=== PATIENT | male | born 1980 | race Caucasian/White ===

== ENCOUNTER 2018-06-16 11:38 | Emergency (ER) | payer OTHER, SELFPAY ==
[2018-06-16 11:39] VITALS: BP 157/97; PULSE 100; RESP 18; TEMP 36.6; O2SAT 99; BMI 19.6
--- NOTE | 2018-06-16 11:58 | CT_ITS ---
STUDY: CT ABDOMEN AND PELVIS WITH CONTRAST REASON FOR EXAM: Male, 37 years old. Left upper quadrant pain. The patient as a history of gastritis. RADIATION DOSAGE (If Supplied By Facility): CTDIvol = ( 6.59 ) mGy, DLP = ( 335.63 ) mGycm TECHNIQUE: Transaxial images were obtained from the dome of the diaphragm to the symphysis pubis with oral contrast. 100 ml of Isovue 300 contrast was administered. Sagittal and coronal images were reconstructed. Individualized dose optimization techniques were used for this CT. COMPARISON: Comparison is made with prior study dated April 23, 2011. FINDINGS: The visualized lung bases are unremarkable. The visualized portions of the heart are within normal limits. Normal liver. Normal gallbladder and extrahepatic biliary system. Normal spleen. Normal pancreas. Normal bilateral adrenal glands. Normal right kidney. Normal left kidney. There is evidence of a left retroaortic renal vein. Normal visualized stomach. Normal small intestine. There are scattered colonic diverticula consistent with diverticulosis. The patient is status post appendectomy. Normal abdominal aorta. Normal inferior vena cava. Normal retroperitoneum. Normal urinary bladder. Normal abdominal wall. Normal osseous structures. CT/Abdomen/Pelvis WITH Contrast IMPRESSION: Scattered sigmoid diverticula. Electronically Signed: Arcadio Middleton MD at 14:15 EST Tel [phone], Service support ,
[2018-06-16 12:19] LABS: Bacteria 0 SEEN /hpf (None Seen); Mucous, Urine 0 SEEN /hpf (<or=2+); White Blood Cells 0 SEEN /hpf (0-5)
[2018-06-16] MEDS: 0.9% Normal Saline 1,000 ML 1000 ML IV (12:19)
[2018-06-16 12:25] LABS: Color, Urine Yellow (Yellow); Glucose, Dipstick Normal (Normal); Ketone-Dipstick Negative (Negative); Leukocyte Esterase-Dipstick Negative /ul (Negative); Nitrite-Dipstick Negative (Negative); Occult Blood-Urine 10 /ul (Negative); Protein-Dipstick Negative (Negative); Urine Bilirubin Dipstick Negative (Negative); Urine Clarity Clear (Clear); Urine Urobilinogen Normal (Normal)
[2018-06-16 12:31] LABS: Red Blood Cells-Urine 0-5 SEEN /hpf (0-5); Squamous Epithelial Cells - UA 0-5 SEEN /hpf (0-5)
[2018-06-16 12:40] LABS: Absolute Lymphocyte Count 1.19 X10^3/ul (0.83-4.51); Basophil# 0.02 X10^3/uL; Basophil% 0.4 % (0-1); Eosinophil# 0.03 X10^3/uL; Eosinophils% 0.6 % (0-5); Hematocrit 45.1 % (40-54); Hemoglobin 15.9 g/dl (13.0-16.5); Lymphocyte # 1.19 X10^3/ul (4.0); Lymphocyte % 25.1 % (19-41); Mean Corp Hgb Conc 35.3 g/gl (32-36); Mean Corpuscular Hgb 30.5 pg (27.0-32.0); Mean Corpuscular Volume 86.6 fL (80-94); Monocyte# 0.46 X10^3/uL; Monocyte% 9.7 % (0-10); Neutrophil # 3.04 X10^3/uL (2.7-7.7); Neutrophil % 64.2 % (47-70); Platelet Count 203 K/mm3 (150-450); RBC Distribution Width CV 11.9 % (11.6-14.6); RBC Distribution Width SD 37.4 fl (35.1-43.9); Red Blood Count 5.21 M/mm3 (4.6-6.2); White Blood Count 4.7 K/mm3 (4.4-11.0)
[2018-06-16 12:43] LABS: POSITIVE COUNT NO; POSITIVE DIFFERENTIAL NO; POSITIVE MORPHOLOGY NO
[2018-06-16 12:49] LABS: ALB/GLOB Ratio 1.2 RATIO (0.9-2.4); AST(SGOT) 28 U/L (15-37); Alanine Aminotransfer ALT/SGPT 51 U/L (16-61); Albumin, Serum 4.2 g/dL (3.2-5.0); Alkaline Phosphatase 59 U/L (45-117); Anion Gap 5 (5-15); BUN 15 mg/dL (7-18); Calcium,Total 9.1 mg/dL (8.5-10.1); Chloride 106 mmol/L (98-107); EST Glomerular Filtration Rate 88 mL/min (>60); Est Glom Filt Rate - Afr Amer 107 mL/min (>60); Estimated Creatinine Clearance 92.26 ml/min; Globulin 3.4 g/dL (2.2-4.2); Glucose 122 mg/dL (74-106); Lipase 212 U/L (73-393); Potassium 3.9 mmol/L (3.5-5.1); Protein, Total 7.6 g/dL (6.4-8.2); Sodium Level 140 mmol/L (136-145)
--- NOTE | 2018-06-16 14:42 | ED.VISSUMM ---
- ER Visit Summary Date of Service: 06/16/18 Chief Complaint: Abdominal pain History of Present Illness: The patient is a 37 M with epigastric abdominal pain for 3 months. Patient has a history of GERD. No other history of upper abdominal pain. He is concerned that he may be seeing eggs in his stool. They are off-white, oval-shaped, and about the size of a rice. He tried probiotics, a gluten-free diet, and sauerkraut, but nothing seems to help with his symptoms. His PCP is out of town and the urgent care referred him here. The patient denies any travel. Denies any recent antibiotics. He has a remote history of Campylobacter infection, but no other abnormal infections. Physical Examination: Afebrile and vital signs unremarkable. Alert and oriented. No acute distress. Skin appears normal. Heart regular. Lungs clear. Abdomen soft Test Results: CBC unremarkable. Metabolic panel showed a total bilirubin of 1.70. Lipase normal. Urinalysis normal. CT showed diverticulosis without diverticulitis. Emergency Department Course and Treatment: Patient's workup here was unremarkable except for bilirubin elevation. He has a history of elevated bilirubin. He has been evaluated for this in the past and his doctors cannot find a cause. I am not sure that this is related to his symptoms. The remainder of his workup is unremarkable. We did send stool testing, but results are pending at this time. Patient is hemodynamically normal and his workup is unremarkable. He is appropriate for outpatient follow-up. Treatment Plan: As above Disposition: Discharge Impression: 1. Epigastric abdominal pain This note was generated with [employer] dictation software. It may contain incorrect words, spelling, and punctuation that were not noted in review of the chart prior to signing ED Disposition - Plan for ED Patient: Chief Complaint: Abd Pain Referrals: Lena Soria MD [Primary Care Provider] -
--- NOTE | 2018-06-16 14:46 | ED.DEP ---
ED Disposition - Plan for ED Patient: Chief Complaint: Abd Pain Instructions: ED Abdominal Pain Unkn Cause Male Referrals: Lena Soria MD [Primary Care Provider] -
[2018-06-16 15:01] VITALS: BP 126/74; PULSE 73; RESP 14; O2SAT 99
--- OUTSIDE RECORDS SUMMARY | 2018-08-18 15:59 | XMS RPT_ITS ---
:1980 Author Organization OH[facility] Care Team Providers Name Role Phone EBONIE SAMANIEGO DPMary Admitting Unavailable EBONIE SAMANIEGO DPMary Attending Unavailable EBONIE SAMANIEGO DPMary Primary Care Unavailable RENATO BELL Consulting Unavailable PROVIDER, UNKNOWN Consulting Unavailable PROVIDER, UNKNOWN Consulting Unavailable PROVIDER, UNKNOWN Consulting Unavailable MARK ANTOINE MD Admitting Unavailable MARK ANTOINE MD Attending Unavailable MARK ANTOINE MD Primary Care Unavailable RENATO BELL Consulting Unavailable PROVIDER, UNKNOWN Consulting Unavailable PROVIDER, UNKNOWN Consulting Unavailable PROVIDER, UNKNOWN Consulting Unavailable Fredy Sloan Attending Unavailable Lena Soria Primary Care Unavailable Ramon Sharp Attending Unavailable Kenny Barrera Attending Unavailable Lena Soria Referring Unavailable PROBLEMS PROBLEMS No Problem Records FoundPROCEDURES PROCEDURES No Procedure Records FoundRESULTS RESULTS EMERGENCY DEPARTMENT Observed: 06/16/2018 Status: F Source: [place] SUMMARY 4:14 PM [facility] [place] [facility] Medical Records Department [address] [place] [address] Emergency Department Summary 06/16/18 1442 MR#: [id number] Acct: [id number] Name: BALDOMERO HANLEY V Rep #: [id number] : 1980 37 From: Fredy Sloan MD PCP: Lena Soria MD Status: DEP ER - ER Visit Summary Date of Service: 06/16/18 Chief Complaint: Abdominal pain History of Present Illness: The patient is a 37 M with epigastric abdominal pain for 3 months. Patient has a history of GERD. No other history of upper abdominal pain. He is concerned that he may be seeing eggs in his stool. They are off-white, oval- shaped, and about the size of a rice. He tried probiotics, a gluten-free diet, and sauerkraut, but nothing seems to help with his symptoms. His PCP is out of town and the urgent care referred him here. The patient denies any travel. Denies any recent antibiotics. He has a remote history of Campylobacter infection, but no other abnormal infections. Physical Examination: Afebrile and vital signs unremarkable. Alert and oriented. No acute distress. Skin appears normal. Heart regular. Lungs clear. Abdomen soft Test Results: CBC unremarkable. Metabolic panel showed a total bilirubin of 1.70. Lipase normal. Urinalysis normal. CT showed diverticulosis without diverticulitis. Emergency Department Course and Treatment: Patient's workup here was unremarkable except for bilirubin elevation. He has a history of elevated bilirubin. He has been evaluated for this in the past and his doctors cannot find a cause. I am not sure that this is related to his symptoms. The remainder of his workup is unremarkable. We did send stool testing, but results are pending at this time. Patient is hemodynamically normal and his workup is unremarkable. He is appropriate for outpatient follow-up. Treatment Plan: As above Disposition: Discharge Impression: 1. Epigastric abdominal pain This note was generated with Class Centralation software. It may contain incorrect words, spelling, and punctuation that were not noted in review of the chart prior to signing ED Disposition - Plan for ED Patient: Chief Complaint: Abd Pain Referrals: Lena Soria MD [Primary Care Provider] - What to do if you have Problems For any increased pain, shortness of breath, bleeding, nausea or vomiting, chest pain, or any unexpected problems, contact your Primary Care Provider. Call [facility] ([phone]) or report to the closest Emergency Room. Call 911 if necessary. 06/16/181613 <Electronically signed by Fredy Sloan MD> Date Fredy Sloan MD Cosigner Signature (If Indicated): Date CC: Lena Soria MD DISCHARGE INSTRUCTION Observed: 06/16/2018 Status: Source: [place] 4:14 PM [facility] [place] [facility] Medical Records Department [address] [place] [id number] Discharge Instruction 06/16/18 1446 MR#: [id number] Acct: [id number] Name: NYDIABALDOMERO Monzon Rep #: [id number] : 1980 37 From: Fredy Sloan MD PCP: Lena Soria MD Status: DEP ER ED Disposition - Plan for ED Patient: Chief Complaint: Abd Pain Instructions: ED Abdominal Pain Unkn Cause Male Referrals: Lena Soria MD [Primary Care Provider] - What to do if you have Problems For any increased pain, shortness of breath, bleeding, nausea or vomiting, chest pain, or any unexpected problems, contact your Primary Care Provider. Call [facility] ([phone]) or report to the closest Emergency Room. Call 911 if necessary. 06/16/181613 <Electronically signed by Fredy Sloan MD> Date Fredy Sloan MD Cosigner Signature (If Indicated): Date CC: Lena Soria MD Observed: 06/16/2018 Status: F Source: [place] ENTERIC PATHOGEN 2:10 PM [facility] [place] [facility] Order Date: 06/16/18 EP PANEL STOOL Not detected for Campylobacter group, Salmonella species, Shigella species, Vibrio Group, Yersinia enterocolitica, EHEC (Shiga Toxin 1, Shiga Toxin 2), Norovirus Gl/Gll, and Rotavirus A. Other common stool pathogens are not detected on this panel include: Aeromonas/Plesiomonas or parasites. Order testing for these organisms separately if suspected. This is an amplified DNA test which makes it both specific and sensitive. Normal Reference Range = Not Detected CAMPYLOBACTER Not Detected Salmonella Not Detected Shigella sp. Not Detected Shiga Toxin Not Detected Yersinia Not Detected VIBRIO Not Detected Norovirus Not Detected Rotavirus Not Detected Performed By: #### M100.637 #### [facility] [place] [address] [address], [address] Observed: 06/16/2018 Status: F Source: [place] OVA AND PARASITES 2:10 PM [facility] [place] [facility] O + P OVA AND PARASITES EXAM, ROUTINE These results were obtained using wet preparation(s) and trichrome stained smear. This test does not include testing for Crytosporidium parvum, Cyclospora, or Microsporidia. One negative specimen does not rule out the possibility of a parasitic infection. TESTING PERFORMED AT [facility]. ORIGINAL REPORT ON FILE IN LAB CONTAINS ADDITIONAL TEST SITE INFORMATION. Ova/Parasite Exam NO OVA, CYSTS, OR PARASITES FOUND. Performed By: #### M600.5000 #### [facility] [address] [place], [place], [address] CBC W/DIFF, AUTOMATED Collected: 06/16/2018 Status: F Source: JO 12:17 PM [facility] [place] [facility] TYPE CODE TESTS RESULT OUT OF RANGE REFERENCE UNITS LAB L100.1000 4.4-11.0 K/mm3 Normal WBC 4.7 LAB L100.1200 4.6-6.2 M/mm3 Normal RBC 5.21 LAB L100.1300 13.0-16.5 g/dl Normal HGB 15.9 LAB L100.1400 40-54 % Normal HCT 45.1 LAB L100.1500 80-94 fL Normal MCV 86.6 LAB L100.1600 27.0-32.0 pg Normal MCH 30.5 LAB L100.1700 32-36 g/gl Normal MCHC 35.3 LAB L100.1810 11.6-14.6 % Normal RDW CV 11.9 LAB L100.1820 35.1-43.9 fl Normal RDW SD 37.4 LAB L100.1900 150-450 K/mm3 Normal PLT 203 LAB L100.2000 6.2-12.0 fl Normal MPV 9.0 LAB L100.2100 47-70 % Normal NEUT% 64.2 LAB L100.2200 19-41 % Normal LY% 25.1 LAB L100.2300 0-10 % Normal MONO% 9.7 LAB L100.2400 0-5 % Normal EO% 0.6 LAB L100.2500 0-1 % Normal BASO% 0.4 LAB L100.2550 0.0-0.9 % Normal IM GRAN % 0.000 Result Comment: IG% - Immature Granulocytes (promyelocytes, myelocytes and metamyelocytes) > 1% indicates that a LEFT SHIFT is Present. LAB L100.2620 2.0-7.7 X10 3/uL Normal Absolute Neut 3.0 LAB L100.2720 0.83-4.51 X10 3/ul Normal Absolute Lymph 1.19 Performed By: #### L100.0100 #### [facility] [address] [place], [address] COMPREHENSIVE METABOLIC Collected: 06/16/2018 Status: F Source: [place] 12:17 PM [facility] [place] [facility] TYPE CODE TESTS RESULT OUT OF RANGE REFERENCE UNITS LAB L501.0100 74-106 mg/dL High GLU 122 Result Comment: Fasting Glucose result from 100 to 125 mg/dL suggests IMPAIRED HOMEOSTASIS per A.D.A. criteria. Please note revised GLUCOSE reference range effective 2017. LAB L501.1000 7-18 mg/dL Normal BUN 15 LAB L501.1100 0.70-1.30 mg/dL Normal CREAT,SERUM 1.00 Result Comment: The validity of the calculated GFR AND GFRAA in patients over 70 years has not been determined. Clinical correlation is essential. LAB L501.1110 >60 mL/min Normal EST GFR 88 Result Comment: Non- GFR Calc LAB L501.1115 >60 mL/min Normal EST GFR - AA 107 Result Comment: GFR Calc LAB L501.1255 ml/min Normal Estimated CRCL 92.26 LAB L501.1300 10-20 RATIO Normal BUN/CRE 15.0 LAB L501.1500 6.4-8. g/dL Normal 2 T PROT 7.6 LAB L501.1800 3.2-5. g/dL Normal 0 ALB 4.2 LAB L501.1950 2.2-4. g/dL Normal 2 GLOB 3.4 LAB L501.2000 0.9-2. RATIO Normal 4 A/G 1.2 LAB L501.2200 8.5-10 mg/dL Normal .1 CA 9.1 LAB L501.4100 15-37 U/L Normal AST 28 LAB L501.4305 45-117 U/L Normal ALK P 59 LAB L501.4405 16-61 U/L Normal ALT 51 LAB L501.4600 0.20-1 mg/dL High .00 T BILI 1.70 LAB L501.5300 136-14 mmol/L Normal 5 NA 140 LAB L501.5600 3.5-5. mmol/L Normal 1 K 3.9 LAB L501.5900 98-107 mmol/L Normal CL 106 LAB L501.6100 21.0-3 mmol/L Normal 2.0 CO2 29.0 LAB L501.6200 5-15 Normal GAP 5 Performed By: #### L500.4050, L501.2450 #### [facility] [address] [place], [address] LIPASE Collected: 06/16/2018 Status: F Source: [place] 12:17 PM [facility] [place] [facility] TYPE CODE TESTS RESULT OUT OF RANGE REFERENCE UNITS LAB L501.2450 73-393 U/L Normal LIPASE 212 Performed By: #### L500.4050, L501.2450 #### [facility] [address] [place], [address] URINALYSIS, COMPLETE Collected: 06/16/2018 Status: F Source: [place] 12:15 PM [facility] [place] [facility] Order Comment: Order Date: 06/16/18 How was Urine Obtained? CLEAN CATCH TYPE CODE TESTS RESULT OUT OF RANGE REFERENCE UNITS LAB L400.3000 Yellow COLOR Normal Yellow LAB L400.3050 Clear Normal CLARITY Clear LAB L400.3200 Normal mg/dl Normal GLUCOSE, UR Normal LAB L400.3300 Negative mg/dL Normal BILIRUBIN URINE Negative LAB L400.3400 Negative mg/dl Normal KETONE UR Negative LAB L400.3465 1.002-1.030 Normal SP.GR. DIPSTX 1.010 LAB L400.3550 5.0 - 8.0 pH UR Normal 7.0 LAB L400.3600 Negative mg/dl PROT Normal DIPSTX Negative LAB L400.3700 Normal mg/dl Normal UROBILI Normal LAB L400.3750 Negative Normal NITRITE UR Negative LAB L400.3780 Negative /ul High 10 OCCULT BLOOD-UR LAB L400.3800 Negative /ul LEUK Normal ESTERASE Negative LAB L400.4050 0-5 /hpf WBC 0 Normal SEEN LAB L400.4100 0-5 /hpf Normal RBC-UA 0-5 SEEN LAB L400.4150 0-5 /hpf SQUAM Normal EPI 0-5 SEEN LAB L400.4300 None Seen /hpf 0 Normal BACTERIA SEEN LAB L400.4350 <or=2+ /hpf 0 Normal MUCUS, URINE SEEN Performed By: #### L400.0001 #### [facility] [address] [place], [address] ABDOMEN/PELVIS WITH Observed: 06/16/2018 Status: F Source: [place] CONTRAST 11:59 AM [facility] [place] Imaging Services [address] [place] [address] Abdomen/Pelvis WITH Contrast MR#: [id number] Acct: [id number] Name: BALDOMERO HANLEY V Rep #: [id number] : 1980 M 37 From: Arcadio Middleton MD PCP: Lena Soria MD Status: REG ER Study: Abdomen/Pelvis WITH Contrast Date of Exam: 06/16/18 Exam# [id number] Ordering Dr: Fredy Sloan MD STUDY: CT ABDOMEN AND PELVIS WITH CONTRAST REASON FOR EXAM: Male, 37 years old. Left upper quadrant pain. The patient as a history of gastritis. RADIATION DOSAGE (If Supplied By Facility): CTDIvol = ( 6.59 ) mGy, DLP = ( 335.63 ) mGycm TECHNIQUE: Transaxial images were obtained from the dome of the diaphragm to the symphysis pubis with oral contrast. 100 ml of Isovue 300 contrast was administered. Sagittal and coronal images were reconstructed. Individualized dose optimization techniques were used for this CT. COMPARISON: Comparison is made with prior study dated April 23, 2011. FINDINGS: The visualized lung bases are unremarkable. The visualized portions of the heart are within normal limits. Normal liver. Normal gallbladder and extrahepatic biliary system. Normal spleen. Normal pancreas. Normal bilateral adrenal glands. Normal right kidney. Normal left kidney. There is evidence of a left retroaortic renal vein. Normal visualized stomach. Normal small intestine. There are scattered colonic diverticula consistent with diverticulosis. The patient is status post appendectomy. Normal abdominal aorta. Normal inferior vena cava. Normal retroperitoneum. Normal urinary bladder. Normal abdominal wall. Normal osseous structures. CT/Abdomen/Pelvis WITH Contrast IMPRESSION: Scattered sigmoid diverticula. Electronically Signed: Arcadio Middleton MD at 14:15 EST Tel [phone], Service support , CC: Fredy Solan MD; Lena Soria MD Retail Merchandiser Technician: Signed CARDIOLOGY VISIT Observed: 12/04/2017 Status: F Source: [place] REPORT 3:54 PM [facility] [address] [place] [address] OFFICE VISIT Date of Service: 12/04/17 MR#: [id number] Acct: [id number] Name: BALDOMERO HANLEY V Rep #: [id number] : 1980 Provider: Kenny Barrera MD Age/Sex: 36/M Location: [facility] [place] Status: Signed HPI HPI Chief Complaint: Follow-up visit. Details: BALDOMERO HANLEY, is a 36 M who presents to the office today for a follow-up visit. He is a gentleman who had had palpitations in the past and was evaluated for these palpitations he had an echocardiogram with demonstrated normal ejection fraction with no evidence of mitral valve prolapse a 24-hour Holter monitor demonstrated normal sinus rhythm at a 30 day event monitor did not demonstrate any significant abnormalities he said he had a few episodes of palpitations and underwent stress testing which was normal. He has been worried about his blood pressures but at home they have been normal. His physical exam today demonstrates clear lung tello regular rate and rhythm and no pedal edema. Intake Vital Signs12/04/17 Height 6 ft 12/04/17 Weight: 146 lb 12/04/17 Body Mass Index (BMI) 19.8 12/04/17 Blood Pressure 128/90 12/04/17 Blood Pressure Location Lt brachial Intake Visit Reasons: 1 Y FU (we r/s from 5-) Residential Specialist Required: No Accompanied by: none Is patient in pain?: No Allergies prednisone Adverse Reaction (Verified 12/04/17 15:33) tachycardia pollen Adverse Reaction (Uncoded 10/06/17 13:43) unknown Medications lansoprazole 15 mg capsule,delayed release 15 mg PO QDAY PRN 10/06/17 [History Confirmed 12/04/17] multivitamin tablet 1 tab PO QDAY 10/06/17 [History Confirmed 12/04/17] Ejection fraction %: 65 to 70 PFS Medical History Sinus tachycardia (Chronic) Palpitations (Chronic) GERD (gastroesophageal reflux disease) (Chronic) repair of chest all laceration (Chronic 12/12/11) Surgical History Hx of appendectomy (Chronic 2013) Social History Smoking Status: Never smoker ROS Const Const: Negative for fatigue, weakness, night sweats, excessive sweating, frequent falls, headache(s) or daytime sleepiness Eyes Eyes: Negative for loss of peripheral vision, transient loss of vision, blind spots, double vision or blurry vision ENT ENT: Negative for headache(s), dizziness, balance problems, Nosebleed/epistaxis, tongue swelling or lip swelling Cardio Chest Pain: No Palpitations: No Edema: None Muscle aches with walking: None Resp Respiratory: Negative for SOB at rest, SOB orthopnea\SOB lying down, Cough, paroxysmal nocturnal dyspnea or SOB with activity GI GI: Negative nausea, vomiting, heartburn, black,tarry stools or bright, red blood in stools : Negative for hematuria Musc Musc: Negative for balance problems, muscle aches/ myalgia, muscle weakness or joint pain Skin Skin: Negative non-healing lesions, unusual bruising or rash Neuro Neuro: Negative for weakness, frequent falls, headache(s), double vision, dizziness, lightheadedness, orthostatic symptoms, blurry vision or lack of coordination Magdiel Hematologic/Lymphatic: Negative for easy bruising or easy bleeding Endo Endo: Negative for fatigue, excessive sweating, cold intolerance, heat intolerance, increased thirst/drinking or hair loss Psych Psych: Negative for anxiety or depression Allergy Allergy/Immunology: Negative for throat swelling, Negative for tongue swelling, Negative for hives, Negative for rash, Negative for lip swelling Cardiology Exam Const Appearance: cooperative, healthy appearing, well developed, well groomed and no acute distress Nutritional Appearance: well nourished and average body habitus Orientation: alert, awake and oriented x3 Head Head: normal to inspection, normocephalic and atraumatic Ears: hearing grossly normal bilaterally and external ears normal Nose: external nose normal, nasal mucous membranes and turbinates normal, nares normal, septum normal, no nasal discharge Face and Sinus: face symmetric Mouth: oral mucosae normal, tongue normal, oropharynx normal and moist mucous membranes Teeth and gingiva: dentition normal Throat: posterior oropharynx normal, tonsils normal and uvula midline Eyes General: appearance normal, both eyes and all related structures Eyelids: eyelids normal Conjunctivae: conjunctivae normal Pupils: PERRL, normal by confrontation and accommodation normal EOM: EOM intact bilaterally Neck Neck: normal visual inspection, trachea midline and no JVD JVD: +5 Carotids: normal carotid upstroke and bounding pulses Chest Chest inspection: normal inspection of the chest, symmetric chest movement and normal respiratory effort Auscultation: Bilateral: Clear to Auscultation Cardio Palpation: normal PMI Rate: regular rate Rhythm: regular rhythm Heart sounds: S1 normal, S2 normal and normal, physiologic split S2; negative rub, gallop or murmur GI GI: normal to inspection, soft, no hepatosplenomegaly and bowel sounds present Neuro General: alert, awake, oriented x3, no focal sensory deficit, gait normal and moves all extremities Skin Skin: no rashes or lesions noted Extremities Pulses: Normal: Right Femoral Pulse, Left Femoral Pulse, Right Dorsalis Pedis Pulse, Left Dorsalis Pedis Pulse, Right Posterior Tibial Pulse, Left Posterior Tibial Pulse, Right Radial Pulse, Left Radial Pulse Lower Extremity Edema: None: Bilateral Musculoskel Musculoskeletal: No joint tenderness Psych Psychological: normal affect Assessment AND Plan Problems 1. Palpitations R00.2 Plan This appears to be under relatively good control. My recommendation at this time will be for him to continue expectant management to go on a Mediterranean diet limit salt intake and keep up with his exercise. I will like to see him on an as-needed basis only. Plan Detail Follow Up prn Coding Level of Care Code Off vis,est,level 3 Diagnoses Palpitations R00.2 Coding Level of Care Code Off vis,est,level 3 Diagnoses Palpitations R00.2 12/04/17 1554 <Electronically signed by Kenny Barrera MD> Date Kenny Barrera MD Cosigner Signature: Date (if applicable) CC: Renato Bell MD GROUP A STREP BY Collected: 11/16/2017 Status: F Source: [place] PCR 10:48 AM [facility] REPOSITORY TYPE CODE TESTS RESULT OUT OF REFERENCE UNITS RANGE LAB GASSRC Throat Swab GAS Specimen Source LAB PCRGAS Negative for Group A Strep Group A PCR Streptococcus by PCR. Result Comment: This test was developed and its performance characteristics determined by [facility]'s [facility] ([facility]). It has not been cleared or approved by the FDA. [facility] is regulated under CLIA as qualified to perform high-complexity testing. This test is used for clinical purposes. It should not be regarded as inv estigational or for research. Performed By: #### GASPCR #### [facility] [address] [place], [place] [address] PROGRESS Observed: 11/16/2017 Status: COMPLETED Source: BENLD 10:38 AM [facility] [place] REPOSITORY HNO ID: [id number] Author: Karen (Titi) Ember Service: (none) Author Type: Nurse Practitioner Type: Progress Notes Filed: 11/16/2017 11:36 AM Note Text: Subjective The history is provided by the patient. No highballer was used. HPI Baldomero Hanley is a 36 year old male who presents today for CC of nasal congestion and post nasal drainage This started last Friday. He has been using zycam and jarocho seltzer plus. He is also having body aches, ear pressure, and fatigue. Has days that feels good and last two days worsening. He was bit by a tick on october 22 removed quickly in less than 36 hours. He is also having a rash on left leg been there for a week. BP 132/88 Pulse 72 Temp 36.6 ?C (97.8 ?F) Resp 16 Wt 65.8 kg (145 lb) BMI 19.67 kg/m? ALLERGIES Allergen Reactions - Seasonal Allergies Itching ACTIVE PROBLEM LIST Fertility Testing No family history on file. Social History Marital status: Spouse name: Years of education: Number of children: Social History Main Topics Smoking status: Never Smoker Smokeless tobacco: Never Used Alcohol use: Yes Comment: Occassional Drug use: No Review of Systems Constitutional: Negative. Negative for chills, fever and malaise/fatigue. HENT: Positive for congestion and ear pain. Negative for sinus pain and sore throat. Post nasal drainage Respiratory: Negative for cough, sputum production, shortness of breath and wheezing. Cardiovascular: Negative for chest pain. Genitourinary: Negative for dysuria. Musculoskeletal: Positive for myalgias. Negative for joint pain. Skin: Positive for rash. Neurological: Negative for headaches. Objective Physical Exam Constitutional: He is well-developed, well-nourished, and in no distress. HENT: Head: Normocephalic and atraumatic. Right Ear: Tympanic membrane, external ear and ear canal normal. Tympanic membrane is not injected, not erythematous, not retracted and not bulging. No middle ear effusion. Left Ear: Tympanic membrane, external ear and ear canal normal. Tympanic membrane is not injected, not erythematous, not retracted and not bulging. No middle ear effusion. Nose: Nose normal. Right sinus exhibits no maxillary sinus tenderness and no frontal sinus tenderness. Left sinus exhibits no maxillary sinus tenderness and no frontal sinus tenderness. Mouth/Throat: Uvula is midline and mucous membranes are normal. Posterior oropharyngeal erythema (mild) present. No oropharyngeal exudate, posterior oropharyngeal edema or tonsillar abscesses. Eyes: Conjunctivae and EOM are normal. Pupils are equal, round, and reactive to light. Neck: Normal range of motion. Cardiovascular: Normal rate, regular rhythm and normal heart sounds. Pulmonary/Chest: Effort normal and breath sounds normal. No respiratory distress. He has no decreased breath sounds. He has no wheezes. He has no rhonchi. He has no rales. Lymphadenopathy: Head (right side): No submental, no submandibular, no tonsillar, no preauricular and no posterior auricular adenopathy present. Head (left side): No submental, no submandibular, no tonsillar, no preauricular and no posterior auricular adenopathy present. He has no cervical adenopathy. Right cervical: No superficial cervical and no posterior cervical adenopathy present. Left cervical: No superficial cervical and no posterior cervical adenopathy present. Right: No supraclavicular adenopathy present. Left: No supraclavicular adenopathy present. Skin: Skin is warm and dry. Rash noted. Rash is vesicular. There is erythema. Psychiatric: Affect normal. Nursing note and vitals reviewed. ASSESSMENT/PLAN: 1. URI, acute - ICD9: 465.9, ICD10: J06.9 (primary diagnosis) - Discussed viral etiology and rationale for treatment. if symptoms worsen over next 3 days will start augmentin (printed rx given), discussed probiotic 2. Rash - ICD9: 782.1, ICD10: R21 Appears to be a dermatitis Triamcinolone cream - RAPID STREP TEST B/O - GROUP A STREPTOCOCCUS BY PCR 3. Sore throat - ICD9: 462, ICD10: J02.9 - suspect viral - Rapid Strep negative in the office today - overnight throat culture pending - Discussed supportive care treatment with fluids, rest and analgesia. - The patient may also use warm salt water gargles, throat lozenges and/or OTC throat spray as needed. - The patient should follow up in one week if symptoms persist or worsen - Call back if drooling, increased temperature, symptoms of dehydration and/or still sick in one week - RAPID STREP TEST B/O - GROUP A STREPTOCOCCUS BY PCR 4. Nasal congestion - ICD9: 478.19, ICD10: R09.81 Nasal saline as needed/netti pot Ivana By mouth daily Flonase or Nasonex 1 spray each nostril two times a day. Diagnosis and treatment plan were discussed and questions were answered to the patient's satisfaction. Pt acknowledged understanding of concepts and follow up plan. Specific signs and symptoms that would indicate the need for higher level of care were discussed in detail warranting prompt ER evaluation. Karen Pa APRN.PAPER COUNTER CNOV Observed: 11/16/2017 Status: COMPLETED Source: BENLD 10:15 AM [facility] REPOSITORY Office Visit (WSTR) BALDOMERO HANLEY V ([id number]) 1980 M Date Time Provider Department 11/16/17 10:15 AM KAREN PA (ITTI) [facility] During your visit today, we recorded the following information about you: Temperature Pulse Respiration Blood pressure 97.8 degrees 72/minute 16/minute 132/88 Weight 65.8 kg Karen Pa APRN.CNP 11/16/2017 11:36 AM Signed Subjective The history is provided by the patient. No highballer was used. HPI Baldomero Hanley is a 36 year old male who presents today for CC of nasal congestion and post nasal drainage This started last Friday. He has been using zycam and jarocho seltzer plus. He is also having body aches, ear pressure, and fatigue. Has days that feels good and last two days worsening. He was bit by a tick on october 22 removed quickly in less than 36 hours. He is also having a rash on left leg been there for a week. BP 132/88 Pulse 72 Temp 36.6 ?C (97.8 ?F) Resp 16 Wt 65.8 kg (145 lb) BMI 19.67 kg/m? ALLERGIES Allergen Reactions - Seasonal Allergies Itching ACTIVE PROBLEM LIST Fertility Testing No family history on file. Social History Marital status: Spouse name: Years of education: Number of children: Social History Main Topics Smoking status: Never Smoker Smokeless tobacco: Never Used Alcohol use: Yes Comment: Occassional Drug use: No Review of Systems Constitutional: Negative. Negative for chills, fever and malaise/fatigue. HENT: Positive for congestion and ear pain. Negative for sinus pain and sore throat. Post nasal drainage Respiratory: Negative for cough, sputum production, shortness of breath and wheezing. Cardiovascular: Negative for chest pain. Genitourinary: Negative for dysuria. Musculoskeletal: Positive for myalgias. Negative for joint pain. Skin: Positive for rash. Neurological: Negative for headaches. Objective Physical Exam Constitutional: He is well-developed, well-nourished, and in no distress. HENT: Head: Normocephalic and atraumatic. Right Ear: Tympanic membrane, external ear and ear canal normal. Tympanic membrane is not injected, not erythematous, not retracted and not bulging. No middle ear effusion. Left Ear: Tympanic membrane, external ear and ear canal normal. Tympanic membrane is not injected, not erythematous, not retracted and not bulging. No middle ear effusion. Nose: Nose normal. Right sinus exhibits no maxillary sinus tenderness and no frontal sinus tenderness. Left sinus exhibits no maxillary sinus tenderness and no frontal sinus tenderness. Mouth/Throat: Uvula is midline and mucous membranes are normal. Posterior oropharyngeal erythema (mild) present. No oropharyngeal exudate, posterior oropharyngeal edema or tonsillar abscesses. Eyes: Conjunctivae and EOM are normal. Pupils are equal, round, and reactive to light. Neck: Normal range of motion. Cardiovascular: Normal rate, regular rhythm and normal heart sounds. Pulmonary/Chest: Effort normal and breath sounds normal. No respiratory distress. He has no decreased breath sounds. He has no wheezes. He has no rhonchi. He has no rales. Lymphadenopathy: Head (right side): No submental, no submandibular, no tonsillar, no preauricular and no posterior auricular adenopathy present. Head (left side): No submental, no submandibular, no tonsillar, no preauricular and no posterior auricular adenopathy present. He has no cervical adenopathy. Right cervical: No superficial cervical and no posterior cervical adenopathy present. Left cervical: No superficial cervical and no posterior cervical adenopathy present. Right: No supraclavicular adenopathy present. Left: No supraclavicular adenopathy present. Skin: Skin is warm and dry. Rash noted. Rash is vesicular. There is erythema. Psychiatric: Affect normal. Nursing note and vitals reviewed. ASSESSMENT/PLAN: 1. URI, acute - ICD9: 465.9, ICD10: J06.9 (primary diagnosis) - Discussed viral etiology and rationale for treatment. if symptoms worsen over next 3 days will start augmentin (printed rx given), discussed probiotic 2. Rash - ICD9: 782.1, ICD10: R21 Appears to be a dermatitis Triamcinolone cream - RAPID STREP TEST B/O - GROUP A STREPTOCOCCUS BY PCR 3. Sore throat - ICD9: 462, ICD10: J02.9 - suspect viral - Rapid Strep negative in the office today - overnight throat culture pending - Discussed supportive care treatment with fluids, rest and analgesia. - The patient may also use warm salt water gargles, throat lozenges and/or OTC throat spray as needed. - The patient should follow up in one week if symptoms persist or worsen - Call back if drooling, increased temperature, symptoms of dehydration and/or still sick in one week - RAPID STREP TEST B/O - GROUP A STREPTOCOCCUS BY PCR 4. Nasal congestion - ICD9: 478.19, ICD10: R09.81 Nasal saline as needed/netti pot Ivana By mouth daily Flonase or Nasonex 1 spray each nostril two times a day. Diagnosis and treatment plan were discussed and questions were answered to the patient's satisfaction. Pt acknowledged understanding of concepts and follow up plan. Specific signs and symptoms that would indicate the need for higher level of care were discussed in detail warranting prompt ER evaluation. FATOU Deutsch APRN.CNP 11/16/2017 10:52 AM Signed ASSESSMENT/PLAN: 1. URI, acute - ICD9: 465.9, ICD10: J06.9 (primary diagnosis) - Discussed viral etiology and rationale for treatment. 2. Rash - ICD9: 782.1, ICD10: R21 Appears to be a dermatitis Triamcinolone cream - RAPID STREP TEST B/O - GROUP A STREPTOCOCCUS BY PCR 3. Sore throat - ICD9: 462, ICD10: J02.9 - suspect viral - Rapid Strep negative in the office today - overnight throat culture pending - Discussed supportive care treatment with fluids, rest and analgesia. - The patient may also use warm salt water gargles, throat lozenges and/or OTC throat spray as needed. - The patient should follow up in one week if symptoms persist or worsen - Call back if drooling, increased temperature, symptoms of dehydration and/or still sick in one week - RAPID STREP TEST B/O - GROUP A STREPTOCOCCUS BY PCR 4. Nasal congestion - ICD9: 478.19, ICD10: R09.81 Nasal saline as needed/netti pot Ivana By mouth daily Flonase or Nasonex 1 spray each nostril two times a day. Referring Provider: SELF [200] Allergies As of Date: 11/16/2017 Noted Allergy Reaction SEASONAL ALLERGIES 11/21/2015 9 - Itching Date Reviewed: 11/16/2017 Reviewed by: Lillie Sandoval LPN - Fully Assessed Reason for Visit: Rash [1087] Cmt: x 1 week left inner lower leg URI [115] Cmt: x 1 week sore throat, body aches, fatigue Primary Visit Diagnosis:URI, acute [J06.9] Other Visit Diagnoses:Rash [R21] Sore throat [J02.9] Nasal congestion [R09.81] Order(s):RAPID STREP TEST B/O [2203739] Order #: [id number] GROUP A STREPTOCOCCUS BY PCR [SQGASPCR] Order #: [id number] [START ON 11/19/2017] amoxicillin-clavulanic acid (AUGMENTIN) 875-125 mg per tabletTake 1 tablet by mouth twice daily for 10 days.Disp: 20 tabletRfl: 0 triamcinolone acetonide (KENALOG) 0.1 % creamApply 1 application to affected area three times daily. Apply sparingly to area for rash/itching.Disp: 30 gRfl: 0 Prescriptions as of 11/16/2017 Sig: MULTI-VITAMIN ORAL Take by mouth once daily. AMOXICILLIN 875 MG-POTASSIUM * Take 1 tablet by mouth twice * TRIAMCINOLONE ACETONIDE 0.1 %* Apply 1 application to affect* Problem List As Of Date 11/16/2017 Noted Resolved Fertility testing [Z31.41] INVALID FOR* Other instructions from your clinician: ASSESSMENT/PLAN: 1. URI, acute - ICD9: 465.9, ICD10: J06.9 (primary diagnosis) - Discussed viral etiology and rationale for treatment. 2. Rash - ICD9: 782.1, ICD10: R21 Appears to be a dermatitis Triamcinolone cream - RAPID STREP TEST B/O - GROUP A STREPTOCOCCUS BY PCR 3. Sore throat - ICD9: 462, ICD10: J02.9 - suspect viral - Rapid Strep negative in the office today - overnight throat culture pending - Discussed supportive care treatment with fluids, rest and analgesia. - The patient may also use warm salt water gargles, throat lozenges and/or OTC throat spray as needed. - The patient should follow up in one week if symptoms persist or worsen - Call back if drooling, increased temperature, symptoms of dehydration and/or still sick in one week - RAPID STREP TEST B/O - GROUP A STREPTOCOCCUS BY PCR 4. Nasal congestion - ICD9: 478.19, ICD10: R09.81 Nasal saline as needed/netti pot Ivana By mouth daily Flonase or Nasonex 1 spray each nostril two times a day. Prescriptions ordered this encounter Disp Refills Start End AMOXICILLIN 875 MG-POTASSIUM CLAVULA* 20 t* 0 11/19/2017 11/29/2017 Class: Print RX Route: ORAL Sig: Take 1 tablet by mouth twice daily for 10 days. TRIAMCINOLONE ACETONIDE 0.1 % TOPICA* 30 g 0 11/16/2017 Route: TOPICAL Sig: Apply 1 application to affected area three times daily. Apply sparingly to area for rash/itching. Encounter Status:Closed by KAREN PA CNP on 11/16/17 CHEST 2 VIEWS Observed: 08/21/2017 Status: F Source: RAFA SUN 4:28 PM [facility] REPOSITORY [place] [address] Patient: BALDOMERO HANLEY V. Phone#: : 1980 Age: 36 Gender: M Pt. Type: Out Account: [id number] Location: [facility] Ordering: MARK ANTOINE Exam Date: 08/21/2017/16:16 Family Phys: RENATO BELL Charge Code: [id number] Physician: Canóvanas Order #: [id number] DLP Dose#: PROCEDURE: X-RAY CHEST 2 VIEWS COMPARISON: [facility], XR, CHEST AP, 12/12/2011, 16:18. INDICATIONS: Chronic cough FINDINGS: LUNGS: Normal. No significant pulmonary parenchymal abnormalities. VASCULATURE: Normal. Unremarkable pulmonary vasculature. CARDIAC: Normal. No cardiac silhouette abnormality or cardiomegaly. MEDIASTINUM: Normal. No visible mass or adenopathy. PLEURA: Normal. No effusion or pleural thickening. BONES: Normal. No fracture or visible bony lesion. OTHER: Negative. CONCLUSION: No acute disease. No significant change has occurred. Dictated by: Janet Barrera MD on 08/21/2017 at 17:28 Approved by: Janet Barrera MD on 08/21/2017 at 17:28 FOOT COMPLETE LT Observed: 07/31/2017 Status: F Source: RAFA SUN 9:32 AM [facility] REPOSITORY [place] [id number] [place] [address] Patient: BALDOMERO HANLEY V. Phone#: : 1980 Age: 36 Gender: M Pt. Type: Out Account: [id number] Location: 052 Ordering: EBONIE SAMANIEGO Exam Date: 07/31/2017/9:16 Family Phys: RENATO Brower STAS Charge Code: [id number] Physician: Canóvanas Order #: [id number] DLP Dose#: PROCEDURE: X-RAY FOOT LT COMPLETE MIN 3 VIEWS COMPARISON: None. INDICATIONS: Injury to left heel FINDINGS: BONES: Normal. No significant arthropathy or acute abnormality. There is a bipartite medial sesamoid. SOFT TISSUES: Negative. No visible soft tissue swelling. EFFUSION: None visible. OTHER: Negative. CONCLUSION: 1. No acute osseous abnormality. Dictated by: Janet Barrera MD on 07/31/2017 at 11:27 Approved by: Janet Barrera MD on 07/31/2017 at 11:27 ALLERGIES ALLERGIES DATE TYPE / CODE NAME / CODE REACTION SEVERITY SOURCE Drug prednisone/F00 TACHYCARDIA Unknown Jo 9 Allergy/126205375( 3311800(RXNORM [facility] SNOMED CT) ) Hospital Repository Miscellaneous pollen Unknown Unknown Jo 9 Allergy/157227200( [facility] SNOM[facility]) Hospital Repository Environ/973764730( SEASONAL ITCHING [place] [address]) ALLERGIES [facility] [place] Repository Drug steriods/91108 tachacardia Moderate [facility]/134557720( 051(RXNORM) (Severity [facility] SNOMED CT) Modifier) Hospital (Qualifier Repository Value) ENCOUNTERS ENCOUNTERS ADMIT/DISCHARGE ACCOUNT ADMITTING ENCOUNTER LOCATION SOURCE NUMBER CLASS 06/16/2018/06/16/19 [id number] Emergency Jo Jo 19 [facility] ing:ED Repository 12/04/2017/12/05/19 [id number] Ambulatory BMSBuilding:B [place] [address] [place].[facility] Repository 11/16/2017/11/19/19 [id number] Ambulatory [address] Repository 10/06/2017 [id number] Ambulatory BMSBuilding:B [place] MS.G [facility] Repository 08/21/2017 [id number] ELINA, Ambulatory Rafa FLORES [facility] Repository 07/31/2017/08/01/19 [id number] EBONIE SAMANIEGO Ambulatory Rafa Sun [address] [place] [address] Repository PAYERS PAYERS ENCOUNTER GUARANTOR PAYER SUBSCRIBER SOURCE 06/16/2018 BALDOMERO V Primary BALDOMERO V Jo [id number] Insurance:AULTCAREPoli RAMSEYERDOB: [facility] [address] cy Number: [id number], [id number] Repository [place] [address]Smv: Date:2488-09-60AU [address], [place] () [phone]: 06/16/2018 Secondary NOT GIVENUNK [place] Insurance:SELF PAY [facility] Number: Effective Repository Date:2018-06-16 12/04/2017 BALDOMERO V Primary BALDOMERO V Jo [id number] Insurance:AULTCAREPoli RAMSEYERDOB: [facility] [address] cy Number: [id number], [id number] Repository [place] [address]Cmq: Date:9534-32-00UV [address] [place] [address] () [phone]: 12/04/2017 Secondary NOT GIVENUNK [place] Insurance:SELF PAY [facility] Number: Effective Repository Date:2017-10-07 10/06/2017 Baldomero V Primary Insurance:SELF NOT GIVENUNK Jo [id number] PAY [facility] Number: Effective [address], Date:2017-10-06 Repository in [address]Izu: () 08/21/2017 BALDOMERO V Primary BALDOMERO Sun RAMSEYERDOB: Insurance:AULTCARE RAMSEYERDOB: [facility] [id number] [facility] [id number] [facility] TR Number: [address] Repository [address] [place] [address], [id number] [address] [place] [address] Date:Plan Name:[facility] [place] [id number]: [address] [place] [address]CA: ([phone]) () [phone] 07/31/2017 BALDOMERO [facility] BALDOMERO Sun [facility]: Insurance:[facility]: [facility] [id number] [facility] [id number] [facility] TR Number: [address] Repository [address] [place] [address], [id number] [address] [place] [address] Date:Plan Name:[facility] [place] [id number]: [address], [place] [address]TC: [phone] () [phone]
--- OUTSIDE RECORDS SUMMARY | 2018-08-18 15:59 | XMS RPT_ITS | Clinical Summary ---
:1980 Author Organization [facility] Address [address] [place] [address] Phone Care Team Providers Name Role Phone Ramon Sharp Yogi Ginny Unavailable Conditions or Problems Problem Name Problem Onset Status Entry Provider Comment Standard Annotate Code Date Date Description Sinus 55802463 Active Kenny S Sinus tachycardia (SNOMED /16 10/[address]) Palpitations 04186404 Active Mony M Palpitations (SNOMED /13 08/05 Maria E, CT) RN 12 CM S21.109A Resolved Mony Hernandez Unspecified LACERATION (ICD-10-CM /30 02/11 Maria E, open wound of CHEST WALL ) RN unspecified front wall of thorax without penetration into thoracic cavity, initial encounter 12 CM S21.109A Removed Baljit Sy Unspecified LACERATION (ICD-10-CM /30 02/11 Evgeny GASPAR open wound of CHEST WALL ) unspecified front wall of thorax without penetration into thoracic cavity, initial encounter Medications Medication Instructions Start Stop Generic Name NDC Provider Date Date PERCOCET / ETHEL DAVENPORT PERCOCET Mony Hernandez VEDA Sanderson CIPRO / TAMARA MCDONALD CIPRO Mony Hernandez VEDA Sanderson VALIUM 5 MG TABS One tablet by DIAZEPAM [id number] Baljit Sy mouth four 30 Evgeny GASPAR times daily as needed for spasm VALIUM 5 MG TABS One tablet by DIAZEPAM [id number] Mony Hernandez mouth four VEDA Sanderson times daily as needed for spasm PROTONIX PACK as needed PANTOPRAZOLE [id number] Evelyn R SODIUM PACK Jean Paul PROTONIX PACK as needed PANTOPRAZOLE [id number] SODIUM PACK VEDA Sanderson PREVACID 15 MG One tablet by / LANSOPRAZOLE [id number] Mony M CPDR mouth daily 13 VEDA Sanderson PREVACID 15 MG One tablet by / LANSOPRAZOLE [id number] Wil[place] S CPDR mouth daily as 13 MD Holly needed MULTIVITAMINS One tablet by / MULTIPLE [place] S TABS mouth daily 15 VITAMIN MD Holly Medications Administered No information available. Allergies, Adverse Reactions, Alerts Allergy Name Reaction Description Start Date Severity Status Provider PREDNISONE Tachycardia, iireg Severe Active Kenny S MD Holly heart rate POLLEN Critical Active Mony Sanderson RN PREDNISONE Critical No Longer Moni Rodriguez RN Results Date Name Value Unit Range Flag Description Office Visit: evaluation traumatic laceration chest wall ALCOHOLCOUNS no Alcoholism counseling (procedure) Clinical Lists Update: Preload SMOK STATUS Never smoker Tobacco use CPHS Office Visit FALLRSKASSES No Fall risk assessment Replaced Document: Midmark ECG Observations EKG INTERP Sinus Rhythm -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 interpretation ABNORMAL EKG T AXIS 46 deg T wave axis, electrocardiogram EKG QRS AXIS 37 deg QRS axis, electrocardiogram EKG PWAVAXIS 64 deg P wave axis, electrocardiogram QRS INTERVAL 98 ms QRS duration, electrocardiogram ZZ-GE-unk 393 ms GE use only - for LinkLogic import when terms are not otherwise specified QT INTERVAL new path ms QT interval, electrocardiogram SC INTERVAL 136 ms SC interval, electrocardiogram EKGHRTRATE 85 BPM heart rate on electrocardiogram Office Visit MEDS REVIEW Done Documentation of current medications (procedure) FALLQNOTDONE medical contraindication Fall risk assessment Clinical Lists Update: Preload GLUCOSE SER 114 mg/dL H blood glucose CALCIUM 9.6 mg/dL calcium, serum CREATININE 0.9 mg/dL creatinine, serum BUN 17 mg/dL urea nitrogen, blood ANION GAP 13 anion gap, serum CO2 30.2 mmol/L carbon dioxide, venous blood CHLORIDE 102 mmol/L chloride, serum POTASSIUM 4.0 mmol/L potassium, serum SODIUM 141 mmol/L sodium, serum MPV 7.2 fL mean platelet volume PLATELETS 235 10*3/mm3 platelet count RDW 12.6 % red blood cell distribution width MCHC RBC 35 g/dL mean corpuscular hemoglobin concentration, RBC MCH 30 pg mean corpuscular hemoglobin, RBC MCV 86 fL mean corpuscular volume, RBC HCT 44.8 % hematocrit, blood HGB 15.8 g/dL hemoglobin, blood RBC M/UL 5.20 10*6/uL red blood count WBC BLOOD 4.6 10*9/L leukocyte (white blood cells) count, blood TSH 1.07 u[iU]/mL thyroid stimulating hormone, serum Plan of Care Type Date Detail Appointment 08:45 AM Kenny Barrera MD, [address] [place] [address], [address], [place], [address], Pending order WELL CONTROL INSTRUCTOR Pending order Follow Up Appt 1 year Pending order *CBC with Differential Pending order *BMP Pending order *TSH Pending order EKG (In office) Pending order WELL CONTROL INSTRUCTOR Pending order 30 Day Holter Monitor Pending order Echocardiogram (complete) Pending order Follow Up Appt Other Pending order 30 Day Holter Monitor Procedures Code Procedure Name Date Entry Date 0184-1 *CBC with Differential 0667-1 *BMP 3016-3 *TSH CPT-41068 EKG (In office) F/U Appt Follow Up Appt Other F/U WELL CONTROL INSTRUCTOR WELL CONTROL INSTRUCTOR Echo Echocardiogram (complete) Vital Signs Date Name Value Unit Description BMI (Body Mass Index) 19.53 kg/m2 Body Mass Index [Ratio] BP Diastolic 64 mm[Hg] blood pressure, diastolic - 8462-4 BP Systolic 130 mm[Hg] blood pressure, systolic - 8480-6 Heart Rate 96 /min pulse rate E&M - 8867-4 Height 72 [in_us] height E&M - 8302-2 Respiratory Rate 20 /min respiratory rate E&M - 9279-1 Weight Measured 144 [lb_av] weight E&M - 3141-9 Body Temperature 96.5 [degF] temperature E&M BSA (Body Surface Area) 1.87 body surface area
--- OUTSIDE RECORDS SUMMARY | 2018-08-18 15:59 | XMS RPT_ITS | Clinical Summary ---
:1980 Author Organization [facility] Address [address] [place] [address] Phone Care Team Providers Name Role Phone Ramon Sharp Yogi Ginny Unavailable Conditions or Problems Problem Name Problem Onset Status Entry Provider Comment Standard Annotate Code Date Date Description Sinus 95246799 Active Kenny S Sinus tachycardia (SNOMED /16 10/[address]cardia [address]) Palpitations 36454261 Active Mony M Palpitations (SNOMED /08/05 Maria E, CT) RN 12 CM S21.109A [...] 5 MG TABS One tablet by DIAZEPAM [id number] Baljit Sy mouth four 30 Evgeny GASPAR times daily as needed for spasm VALIUM 5 MG TABS One tablet by DIAZEPAM [id number] Mony Hernandez mouth four VEDA Sanderson times daily as needed for spasm PROTONIX PACK as needed PANTOPRAZOLE [id number] Evelyn R SODIUM PACK Jena Paul PROTONIX PACK as needed PANTOPRAZOLE [id number] SODIUM PACK VEDA Sanderson PREVACID 15 MG One tablet by / LANSOPRAZOLE 35198077957 Mony M CPDR mouth daily 13 VEDA Sanderson PREVACID 15 MG One tablet by / LANSOPRAZOLE 53257225129 [place] S CPDR mouth daily as 13 MD Holly needed MULTIVITAMINS One tablet by / MULTIPLE [place] S TABS mouth daily 15 VITAMIN MD [...] INTERVAL new path ms QT interval, electrocardiogram [place] INTERVAL 136 ms [place] interval, electrocardiogram EKGHRTRATE 85 BPM heart rate [...] Detail Appointment 08:45 AM Kenny Barrera MD, [address] [place] [address], [address], [place], [address], Pending order TOBACCO WETTER Pending order Follow Up Appt 1 year Pending order *CBC with Differential Pending order *BMP Pending order *TSH Pending order EKG (In office) Pending order TOBACCO WETTER Pending order 30 Day Holter Monitor Pending order Echocardiogram (complete) Pending order Follow Up Appt Other Pending order 30 Day Holter Monitor Procedures Code Procedure Name Date Entry Date 0184-1 *CBC with Differential 0667-1 *BMP 3016-3 *TSH CPT-60966 EKG (In office) F/U Appt Follow Up Appt Other F/U TOBACCO WETTER TOBACCO WETTER Echo Echocardiogram (complete) Vital Signs Date Name [...]
== END 2018-06-16 15:02 | disposition home or self-care (01) ==
LOC: ED 12:20
PROVIDERS: Emergency Provider Emergency Medicine; Family Provider Internal Medicine; PCP Internal Medicine
DX: R10.13 Epigastric pain (principal); K57.90 Diverticulosis of intestine, part unspecified, without perforation or abscess without bleeding; E80.6 Other disorders of bilirubin metabolism; K21.9 Gastro-esophageal reflux disease without esophagitis; Z79.899 Other long term (current) drug therapy
CPT/HCPCS: 74177; 80053; 81001; 83690; 85025; 87177; 87209; 87329; 87506; 96360; 96361; 99283; J7030; Q9967

== ENCOUNTER → 2019-03-31 12:44 | Outpatient (CLI) | payer OTHER, SELFPAY | PROVIDERS: Family Provider Internal Medicine; PCP Internal Medicine; Referring Provider Obstetrics & Gynecology; Visit Provider Obstetrics & Gynecology | DX: Z31.440 Encounter of male for testing for genetic disease carrier status for procreative management (principal) | CPT/HCPCS: 36415 ==

== ENCOUNTER → 2020-02-21 14:30 | Outpatient (CLI) | payer OTHER, SELFPAY ==
[2020-02-21 13:25] VITALS: BMI 19.6
[2020-02-21 17:23] LABS: ALB/GLOB Ratio 1.2 RATIO (0.9-2.4); AST(SGOT) 14 U/L (15-37); Alanine Aminotransfer ALT/SGPT 28 U/L (16-61); Albumin, Serum 4.4 g/dL (3.2-5.0); Alkaline Phosphatase 60 U/L (45-117); Anion Gap 4 (5-15); BUN 12 mg/dL (7-18); BUN/Creat Ratio 13.2 RATIO (10-20); Calcium,Total 9.5 mg/dL (8.5-10.1); Chloride 107 mmol/L (98-107); Cholesterol 166 mg/dL (200); Creatinine, Serum 0.91 mg/dL (0.70-1.30); EST Glomerular Filtration Rate 98 mL/min (>60); Est Glom Filt Rate - Afr Amer 118 mL/min (>60); Globulin 3.6 g/dL (2.2-4.2); Glucose 104 mg/dL (74-106); High Density Lipoprotein 68 mg/dL; Sodium Level 138 mmol/L (136-145); Triglycerides 99 mg/dL; Very Low Density Lipoprotein 20 mg/dL (5-40)
== END ==
PROVIDERS: PCP Internal Medicine; Visit Provider Internal Medicine
DX: Z13.1 Encounter for screening for diabetes mellitus (principal); Z13.220 Encounter for screening for lipoid disorders
CPT/HCPCS: 36415; 80053; 80061; 83036